=== PATIENT | male | born 1990 | race Caucasian/White ===

== ENCOUNTER 2016-05-29 14:08 | Emergency (ER) | payer OTHER ==
[~2016-05-29] VITALS: Ht 172.7 cm; Wt 90.0 kg
[~2016-05-29 14:08] MED LIST: CEPH500C3 PO; LORT7.5T3 PO; OXYC-360 PO
[2016-05-29 14:23] VITALS: BP 107/72; PULSE 98; RESP 16; TEMP 98.8; O2SAT 96
[2016-05-29] MEDS ORDERED: LEVA750T PO (15:51)
[2016-05-29] MEDS ORDERED: VORT1TAB3 PO (15:51)
[2016-05-29] MEDS ORDERED: SERO100T PO (15:51)
[2016-05-29] MEDS ORDERED: CYMB60CA PO (15:51)
[2016-05-29] MEDS ORDERED: RISP2TAB37 PO (15:51)
[2016-05-29] MEDS ORDERED: PANT40TA3 PO (15:51)
[2016-05-29] MEDS ORDERED: ACET-703 PO (15:51)
[2016-05-29] MEDS ORDERED: PERC5TAB12 PO (15:51)
[2016-05-29] MEDS ORDERED: RESP: LIDOCAINE HCL 4% PF 5 ML NEB NEB ONE (16:00)
[2016-05-29] MEDS ORDERED: predniSONE 20 MG TAB PO ONE (16:00)
[2016-05-29 16:13] VITALS: O2SAT 98
[2016-05-29] MEDS: RESP: ALBUTEROL 2.5 MG/IPRATROPIUM 0.5 MG NEB (SCH) INH ×2 (16:15→16:18)
[2016-05-29 16:19] VITALS: O2SAT 97
[2016-05-29] MEDS ORDERED: GUAI1LIQ16 PO (17:04)
[2016-05-29] MEDS ORDERED: PRED-503 PO (17:04)
--- NOTE | 2016-05-29 17:05 | PD ---
HPI Chief Complaint: Cold / Flu Symptoms Time Seen by Provider: 15:48 Travel History International Travel<30 days: No Contact w/Intl Traveler<30days: No Traveled to known affect area: No History of Present Illness HPI The patient is a 26-year-old male who presents emergency department for cough and cold symptoms. The patient is a 4 day history of cough producing yellow to brown sputum, facial congestion, body aches, and subjective fevers. The patient states he was seen at urgent care yesterday and had an influenza screen that was negative and a chest x-ray that was negative. The patient was diagnosed with bronchitis and discharged home on Levaquin and an albuterol inhaler. However, the patient continues have a productive cough and bilateral chest wall pain secondary to coughing. The patient denies any history of chronic bronchitis or chronic pneumonia. He denies any shortness of breath. He denies any associated nausea, vomiting, diarrhea, or abdominal pain. PFSH Past Medical History Bipolar Disorder: Yes Depression: Yes Diminished Hearing: No Musculoskeletal: Yes (CHOSTOCHONDRITIS(LT KNEE)) Respiratory: Yes (recent bronchitiis) Immunizations Current: Yes Influenza Vaccination: No ?: Not Past Surgical History Oral Surgery: Yes (WISDOM TEETH REMOVED) Social History Alcohol Use: No (denies) Tobacco Use: Yes Substance Use: Yes Allergies-Medications (Allergen,Severity, Reaction): Coded Allergies: No Known Allergies (Unverified , 05/29/16) Reported Meds & Prescriptions Reported Meds & Active Scripts Active Reported Risperdal (Risperidone) 2 Mg Tab 2 Mg PO DAILY Trintellix (Vortioxetine) 20 Mg Tab 20 Mg PO BID Cymbalta DR (Duloxetine HCl) 60 Mg Capdr 60 Mg PO DAILY Seroquel (Quetiapine Fumarate) 100 Mg Tab 100 Mg PO HS Pantoprazole (Pantoprazole Sodium) 40 Mg Tab 40 Mg PO DAILY Percocet (Oxycodone-Acetaminophen) 5-325 mg Tab 1 Tab PO Q4H PRN Tylenol Extra Strength (Acetaminophen) 500 Mg Tab 1,000 Mg PO Q4-6H PRN Levaquin (Levofloxacin) 750 Mg Tab 750 Mg PO DAILY Review of Systems Except as stated in HPI: all other systems reviewed are Neg General / Constitutional: Positive: Fever (subjective) HENT: Positive: Congestion Cardiovascular: No: Chest Pain or Discomfort Respiratory: Positive: Cough, Wheezing, No: Shortness of Breath Gastrointestinal: No: Nausea, Vomiting, Diarrhea, Abdominal Pain Musculoskeletal: Positive: Myalgias Skin: No Rash Physical Exam Narrative GENERAL: Awake, alert, pleasant 26-year-old male appears his stated age and is in no acute respiratory distress. SKIN: Warm and dry. HEAD: Atraumatic. Normocephalic. EYES: Pupils equal and round. No scleral icterus. No injection or drainage. ENT: No nasal bleeding or discharge. Mildly erythematous posterior oropharynx.. NECK: Trachea midline. No JVD. CARDIOVASCULAR: Regular rate and rhythm. No murmur appreciated. Heart rate in the 90s. RESPIRATORY: No accessory muscle use. Scattered rhonchi. GASTROINTESTINAL: Abdomen soft, non-tender, nondistended. No rebound tenderness.. MUSCULOSKELETAL: No obvious deformities. No clubbing. No cyanosis. No edema. NEUROLOGICAL: Awake and alert. No obvious cranial nerve deficits. Motor grossly within normal limits. Normal speech. PSYCHIATRIC: Appropriate mood and affect; insight and judgment normal. Data Data Last Documented VS Vital Signs Date Time Temp Pulse Resp B/P Pulse Ox O2 Delivery O2 Flow Rate FiO2 05/29/16 16:19 97 21 05/29/16 15:53 18 05/29/16 14:23 98.8 98 107/72 Orders Ecg Monitoring (05/29/16 16:00) Oximetry (05/29/16 16:00) Albuterol-Ipratropium Neb (Duoneb Neb) (05/29/16 16:00) Lidocaine Pf 4% Neb (Lidocaine Pf 4% Neb (05/29/16 16:00) Prednisone (Deltasone) (05/29/16 16:00) [facility] Medical Decision Making Medical Screen Exam Complete: Yes Emergency Medical Condition: Yes Medical Record Reviewed: Yes Differential Diagnosis Differential diagnosis includes bronchitis, pneumonia, influenza, viral syndrome , congestive heart failure, pleural effusion. Narrative Course The patient states he had a negative influenza screen yesterday and a negative chest x-ray. The patient was placed on Levaquin and albuterol inhaler. The patient does have coarse breath sounds consistent with bronchitis, is currently afebrile and is not hypoxic or tachycardic. Patient was administered to duo nebs with respiratory lidocaine. I will discharge patient home on prednisone, have advised him to continue the albuterol inhaler every 4 hours and finished antibiotics. He is also advised to follow-up with a primary physician. Work excuse for 2 days. Diagnosis Primary Impression: Bronchitis Patient Instructions: General Instructions Additional Instructions: Work excuse for 2 days. Albuterol inhaler as previously directed every 4 hours while awake. Finished Levaquin as previously directed. Prednisone as directed. Follow-up with a primary physician. Scripts Guaifenesin-Codeine (G Tussin AC 100-10 mg/5Ml)1 Liq Liq5 Ml PO Q6HR #1 BOTTLE Prov:Andrew Pierre MD 05/29/16 Prednisone (Deltasone)20 Mg Tab40 Mg PO DAILY 4 Days Ref 0 Prov:Andrew Pierre MD 05/29/16 Disposition: 01 DISCHARGE HOME Condition: Stable Andrew Pierre MD May 29, 2016 17:05
[2016-05-29 17:18] VITALS: BP 135/88
== END 2016-05-29 17:19 | disposition home or self-care (01) ==
LOC: PHED 14:08
DX: J40 Bronchitis, not specified as acute or chronic (principal)
CPT/HCPCS: 94640; 94664; 99283; J7512

== ENCOUNTER 2016-06-06 11:23 | Emergency (ER) | payer OTHER ==
[~2016-06-06] VITALS: Ht 172.7 cm; Wt 91.0 kg
[~2016-06-06 11:23] MED LIST changes: +ACET-703 PO; -CEPH500C3 PO; +CYMB60CA PO; +GUAI1LIQ16 PO; +LEVA750T PO; -LORT7.5T3 PO; -OXYC-360 PO; +PANT40TA3 PO; +PERC5TAB12 PO; +PRED-503 PO; +RISP2TAB37 PO; +SERO100T PO; +VORT1TAB3 PO
[2016-06-06 11:27] VITALS: BP 124/83; PULSE 119; RESP 16; TEMP 98.1; O2SAT 97
[2016-06-06] MEDS ORDERED: CLON1TAB PO (11:46)
[2016-06-06] MEDS ORDERED: TRIH2 PO (11:46)
[2016-06-06] MEDS ORDERED: BREX1TAB4 PO (11:46)
--- NOTE | 2016-06-06 12:08 | PD ---
HPI Chief Complaint: Injury Time Seen by Provider: 11:50 Travel History International Travel<30 days: No Contact w/Intl Traveler<30days: No Traveled to known affect area: No History of Present Illness HPI Patient 26-year-old male presenting with right foot pain. He states during the night he woke up to the restroom and when he stepped down he suffered an inversion injury of the right foot/ankle. He said pain in the dorsum of the foot since and has been able to bear weight but has had difficulty doing so. He denies pain in the ankle, knee or toes. He denies any weakness or paresthesia. No attempts at palliation. Has a history of osteochondritis dissecans and peptic ulcer disease. He denies any other complaints this time. PFSH Past Medical History Bipolar Disorder: Yes Depression: Yes Diminished Hearing: No Musculoskeletal: Yes (CHOSTOCHONDRITIS(LT KNEE)) Respiratory: Yes (recent bronchitiis) Immunizations Current: Yes Influenza Vaccination: No Past Surgical History Oral Surgery: Yes (WISDOM TEETH REMOVED) Social History Alcohol Use: No (denies) Tobacco Use: Yes Substance Use: No Allergies-Medications (Allergen,Severity, Reaction): Coded Allergies: Codeine (Verified Allergy, Severe, 06/06/16) Penicillin (Verified Allergy, Severe, 06/06/16) Tramadol (Verified Allergy, Severe, 06/06/16) Reported Meds & Prescriptions Reported Meds & Active Scripts Active G Tussin AC 100-10 mg/5Ml (Guaifenesin-Codeine) 1 Liq Liq 5 Ml PO Q6HR Reported Trihexyphenidyl (Trihexyphenidyl HCl) 2 Mg Tab 2 Mg PO BID Clonazepam 1 Mg Tab 1 Mg PO TID Rexulti (Brexpiprazole) 2 Mg Tab 2 Mg PO DAILY Risperdal (Risperidone) 2 Mg Tab 2 Mg PO DAILY Cymbalta DR (Duloxetine HCl) 60 Mg Capdr 60 Mg PO DAILY Seroquel (Quetiapine Fumarate) 100 Mg Tab 100 Mg PO HS Pantoprazole (Pantoprazole Sodium) 40 Mg Tab 40 Mg PO DAILY Tylenol Extra Strength (Acetaminophen) 500 Mg Tab 1,000 Mg PO Q4-6H PRN Levaquin (Levofloxacin) 750 Mg Tab 750 Mg PO DAILY Review of Systems General / Constitutional: No: Fever Cardiovascular: No: Chest Pain or Discomfort, Palpitations, Tachycardia Respiratory: No: Shortness of Breath Musculoskeletal: Positive: Other (see the history of present illness) Neurologic: No: Weakness, Focal Abnormalities, Paresthesia, Sensory Disturbance Physical Exam Narrative GENERAL: Well-developed and well-nourished adult male in no acute distress. SKIN: Warm and dry. Good turgor without tenting. HEAD: Normocephalic and atraumatic. EYES: PERRL bilaterally, 5mm. EOMI bilaterally. No injection or icterus present. No proptosis. Lids without edema or erythema. CARDIOVASCULAR: Regular rate(96) and rhythm without murmurs, rubs, clicks or gallops. Radial, dorsalis pedal and posterior tibial pulses 2+ bilaterally. No pedal edema. RESPIRATORY: Clear to auscultation bilaterally with symmetrical rise and fall, no distress or use of accessory muscles. MUSCULOSKELETAL: Denies palpation of the right navicular bone without crepitus or step-offs. Cervical tenderness along the fifth metatarsal. Right foot and ankle has no edema or discoloration. Normal range of motion in right ankle, right knee and all toes right foot. The pain palpation of the right knee, tib- fib, ankle and toes. Patient freely moving all four extremities spontaneously. Extremities without clubbing, cyanosis, or edema. No obvious deformities. NEUROLOGIC: CN II-XII grossly intact. Awake and alert. Strength 5/5 bilateral knee flexion, knee extension, plantar and dorsiflexion. Sensation intact to all toes of right foot. Normal speech. PSYCHIATRIC: Appropriate mood and affect; insight and judgment normal. Data Data Last Documented VS Vital Signs Date Time Temp Pulse Resp B/P Pulse Ox O2 Delivery O2 Flow Rate FiO2 06/06/16 11:27 98.1 119 16 124/83 97 Orders Foot, Complete ([id number]) (06/06/16 11:46) Ice/Cold Pack (06/06/16 11:46) Splint Or Brace Apply/Monitor (06/06/16 12:41) Crutches (06/06/16 12:41) MDM Medical Decision Making Medical Screen Exam Complete: Yes Emergency Medical Condition: Yes Differential Diagnosis Foot sprain versus navicular fracture versus contusion Narrative Course Patient is a 26-year-old male with a history of osteochondritis dissecans presenting with right foot pain and tenderness around the navicular bone after an inversion injury last evening. There is no edema or discoloration. He has normal range of motion and is neurovascularly intact. He states he has been able to bear weight only minimally. She was given I ordered x-ray of the foot which showed no fractures or subluxations. As there are minimal findings suggestive of a sprain no oh. She says are recommended at this time. Patient will cannot take NSAIDs. Recommend OTC Tylenol and will provide Terrell wrap and crutches.See discharge paperwork for further instructions. The plan was discussed with the patient who acknowledged their understanding and agreement. Reinforced the follow-up with primary care is critically important. Patient instructed on emergent conditions that should prompt return to ED. Diagnosis Primary Impression: Foot sprain Qualified Code: S93.601A - Foot sprain, right, initial encounter Patient Instructions: Foot Sprain (ED), General Instructions Departure Forms: Tests/Procedures, Work Release Enter return to work date: Jun 09, 2016 Additional Instructions: Take OTC Tylenol as needed for pain Apply ice every 1 to 2 hours as needed for pain Avoid maneuvers that aggravate pain Keep TERRELL bandage on while being active or using extremity Use crutches when walking to avoid pressure on joint Elevate when at rest Be aware that may take several weeks for sprains to heal fully Follow-up with PCP in 2-3 days Return to the ED for any acute worsening of symptoms Disposition: 01 DISCHARGE HOME Condition: Stable Iggy Villarreal III Jun 06, 2016 12:08
--- NOTE | 2016-06-06 12:38 | RADHPO ---
EXAM DATE/TIME: 06/06/2016 12:21 [place] COMPARISON: No previous studies available for comparison. INDICATIONS : Twisted right foot last night, pain dorsal surface right foot. MEDICAL HISTORY : None. SURGICAL HISTORY : None. ENCOUNTER: Initial ACUITY: 2 days PAIN SCORE: 5/10 LOCATION: Right dorsal foot FINDINGS: Three view examination of the right foot demonstrates no soft tissue swelling, dislocation, or fractu re. The tarsal bones appear intact. The interphalangeal and metatarsophalangeal joints are intact. The calcaneus is intact. Bony mineralization is normal. CONCLUSION: Unremarkable examination of the right foot. Monica Fernández MD on June 06, 2016 at 12:37 Board Certified Radiologist. This report was verified electronically.
== END 2016-06-06 13:05 | disposition home or self-care (01) ==
LOC: PHEFT 11:23
DX: S93.601A Unspecified sprain of right foot, initial encounter (principal); Z72.0 Tobacco use; X50.1XXA Overexertion from prolonged static or awkward postures, initial encounter; Y92.003 Bedroom of unspecified non-institutional (private) residence as the place of occurrence of the external cause; Y99.8 Other external cause status
CPT/HCPCS: 73630; 99283; E0113

== ENCOUNTER 2016-11-15 16:41 | Emergency (ER) | payer OTHER ==
[~2016-11-15] VITALS: Ht 172.7 cm; Wt 87.0 kg
[~2016-11-15 16:41] MED LIST changes: +BREX1TAB4 PO; +CLON1TAB PO; -PERC5TAB12 PO; -PRED-503 PO; +TRIH2 PO; -VORT1TAB3 PO
[2016-11-15 16:50] VITALS: BP 145/97; PULSE 124; RESP 16; TEMP 98.2; O2SAT 99
[2016-11-15 17:47] VITALS: BP 147/85; PULSE 111; RESP 16; O2SAT 96
[2016-11-15] MEDS ORDERED: LIDOCAINE VISCOUS 2% SOLN 15 ML UDC OTHER STA (18:01)
[2016-11-15] MEDS ORDERED: EXCETAB42 PO (18:04)
[2016-11-15] MEDS ORDERED: DICY10 PO (18:04)
[2016-11-15] MEDS ORDERED: LIDOCAINE HCL 1% 50 ML VIAL INFIL ONE (18:15)
[2016-11-15] MEDS ORDERED: BUPIVACAINE HCL PF 0.5% 10 ML VIAL INFIL ONE (18:15)
[2016-11-15] MEDS ORDERED: KETOROLAC TROMETHAMINE 30 MG/ML (IVP) VIAL IV PUSH ONE (18:15)
[2016-11-15 18:27] LABS: AUTOMATED NEUTROPHIL # 9.9 TH/MM3 (1.8-7.7); BASOPHIL % 0.3 % (0.0-2.0); EOSINOPHIL # 0.3 TH/MM3 (0-0.4); EOSINOPHIL % 1.9 % (0.0-4.0); HEMATOCRIT 44.3 % (39.0-51.0); LYMPH % 14.4 % (9.0-44.0); LYMPHOCYTE # 1.9 TH/MM3 (1.0-4.8); MEAN CELL VOLUME 88.9 FL (80.0-100.0); MEAN CORPUSCULAR HEMOGLOBIN 29.8 PG (27.0-34.0); MEAN CORPUSCULAR HGB CONC 33.6 % (32.0-36.0); NEUT % 75.4 % (16.0-70.0); PLATELET COUNT 379 TH/MM3 (150-450); RED BLOOD COUNT 4.98 MIL/MM3 (4.50-5.90); RED CELL DISTRIBUTION WIDTH 12.7 % (11.6-17.2); WHITE BLOOD COUNT 13.2 TH/MM3 (4.0-11.0)
[2016-11-15 18:31] LABS: HEMO FLAGS AUTO DIFF
[2016-11-15 18:34] LABS: CHLORIDE 103 MEQ/L (98-107); POTASSIUM 3.5 MEQ/L (3.5-5.1); SODIUM (NA) 141 MEQ/L (136-145)
[2016-11-15 18:38] LABS: ANION GAP 9 MEQ/L (5-15); BICARBONATE 29.4 MEQ/L (21.0-32.0); BLOOD UREA NITROGEN 8 MG/DL (7-18)
--- NOTE | 2016-11-15 18:38 | PD ---
HPI Chief Complaint: Skin Problem Time Seen by Provider: 17:44 Travel History International Travel<30 days: No Contact w/Intl Traveler<30days: No Traveled to known affect area: No History of Present Illness HPI This Is a 26-year-old man, history of psychiatric disease, GI problems, presents to the emergency department with pain and swelling his left upper lip. He states about 5-6 days ago he's noticed a small pustule. He tried to squeeze it. Last couple days ago more painful red and swollen. He went to an urgent care where they treated him with topical acyclovir, and by mouth acyclovir, and by mouth Bactrim. He has a history of MRSA infection on his face in the past. He states symptoms were not improving at all. He had worsening pain redness and swelling. He went to the urgent care again today and they sent him to the emergency Department. No fevers or chills. No nausea or vomiting. He does state he has pain in the entire face, and behind the eye on that same side. History Past Medical History Narrative Medical PUD/gastroparesis/hiatal hernia/GERD Bipolar disorder/OCD/anxiety Tardive dyskinesia Tetanus Vaccination: > 5 Years Influenza Vaccination: No Social History Alcohol Use: No (hx of) Tobacco Use: Yes (1/3 ppd) Allergies-Medications (Allergen,Severity, Reaction): Coded Allergies: Codeine (Verified Allergy, Severe, 11/15/16) Penicillin (Verified Allergy, Severe, 11/15/16) Tramadol (Verified Allergy, Severe, 11/15/16) Benadryl (Verified Adverse Reaction, Severe, Shaking, vomiting, 11/15/16) Reported Meds & Prescriptions Reported Meds & Active Scripts Active Reported Excedrin Tension Headache Cplt (Acetaminophen/Caffeine) 1 Each Tablet 1 PO Bentyl (Dicyclomine HCl) 10 Mg Cap 10 Mg PO QID Trihexyphenidyl (Trihexyphenidyl HCl) 2 Mg Tab 2 Mg PO BID Seroquel (Quetiapine Fumarate) 100 Mg Tab 100 Mg PO HS Review of Systems Except as stated in HPI: all other systems reviewed are Neg Physical Exam Narrative GENERAL: 26 room and, generally well-appearing, no acute distress. SKIN: Focused skin assessment warm/dry. HEAD: Atraumatic. Normocephalic. EYES: Pupils equal and round. No scleral icterus. No injection or drainage. ENT: No nasal bleeding or discharge. Patient has tenderness and induration with erythema in the left upper lip. There is a small focal point of infection with a pustule. There is not much surrounding erythema. With compression a small amount of purulent drainage can be expressed. NECK: Trachea midline. No JVD. CARDIOVASCULAR: Regular rate and rhythm. No murmur appreciated. RESPIRATORY: No accessory muscle use. Clear to auscultation. Breath sounds equal bilaterally. GASTROINTESTINAL: Abdomen soft, non-tender, nondistended. Hepatic and splenic margins not palpable. MUSCULOSKELETAL: No obvious deformities. No edema. NEUROLOGICAL: Awake and alert. No obvious cranial nerve deficits. Motor grossly within normal limits. Normal speech. PSYCHIATRIC: Appropriate mood and affect; insight and judgment normal. Data Data Last Documented VS Vital Signs Date Time Temp Pulse Resp B/P Pulse Ox O2 Delivery O2 Flow Rate FiO2 11/15/16 19:16 89 17 133/84 98 Room Air 11/15/16 16:50 98.2 Orders Complete Blood Count With Diff (11/15/16 18:01) Comprehensive Metabolic Panel (11/15/16 18:01) Iv Access Insert/Monitor (11/15/16 18:01) Wound Culture And Gram Stain (11/15/16 18:01) Lidocaine 1% Inj (50 Ml) (Xylocaine 1% I (11/15/16 18:15) Bupivacaine Pf 0.5% Inj (Marcaine Pf 0.5 (11/15/16 18:15) Ketorolac Inj (Toradol Inj) (11/15/16 18:15) Lidocaine 2% Viscous (Xylocaine 2% Visco (11/15/16 18:01) Morphine Inj (Morphine Inj) (11/15/16 18:45) Clindamycin Inj (Cleocin Inj) (11/15/16 19:30) Labs Laboratory Tests Test 11/15/16 18:16 White Blood Count 13.2 TH/MM3 Red Blood Count 4.98 MIL/MM3 Hemoglobin 14.9 GM/DL Hematocrit 44.3 % Mean Corpuscular Volume 88.9 FL Mean Corpuscular Hemoglobin 29.8 PG Mean Corpuscular Hemoglobin 33.6 % Concent Red Cell Distribution Width 12.7 % Platelet Count 379 TH/MM3 Mean Platelet Volume 7.6 FL Neutrophils (%) (Auto) 75.4 % Lymphocytes (%) (Auto) 14.4 % Monocytes (%) (Auto) 8.0 % Eosinophils (%) (Auto) 1.9 % Basophils (%) (Auto) 0.3 % Neutrophils # (Auto) 9.9 TH/MM3 Lymphocytes # (Auto) 1.9 TH/MM3 Monocytes # (Auto) 1.1 TH/MM3 Eosinophils # (Auto) 0.3 TH/MM3 Basophils # (Auto) 0.0 TH/MM3 CBC Comment AUTO DIFF Differential Comment AUTO DIFF CONFIRMED Platelet Estimate NORMAL Platelet Morphology Comment CLUMPED Red Cell Morphology Comment NORMAL Sodium Level 141 MEQ/L Potassium Level 3.5 MEQ/L Chloride Level 103 MEQ/L Carbon Dioxide Level 29.4 MEQ/L Anion Gap 9 MEQ/L Blood Urea Nitrogen 8 MG/DL Creatinine 0.86 MG/DL Estimat Glomerular Filtration 107 ML/MIN Rate Random Glucose 73 MG/DL Calcium Level 9.6 MG/DL Total Bilirubin 0.4 MG/DL Aspartate Amino Transf 14 U/L (AST/SGOT) Alanine Aminotransferase 25 U/L (ALT/SGPT) Alkaline Phosphatase 114 U/L Total Protein 8.8 GM/DL Albumin 4.3 GM/DL [facility] Medical Decision Making Medical Screen Exam Complete: Yes Emergency Medical Condition: Yes Differential Diagnosis Infection, abscess, facial cellulitis, dural vein thrombosis, meningitis, orbital cellulitis Narrative Course Medical decision making This is a 26 human presents to the emergency department complaining of tenderness and pain in his left upper lip. It appears to be infection with abscess. There is a small amount of drainage but it doesn't appear to be adequately drained. He's been on Bactrim for a couple days already. At this point we'll do an infraorbital nerve block, we'll needle drain the abscess, IV antibiotics. I called about admitting him for 23 hour observation. I spoke with Dr. Dupree. There is no plastic surgeon or oral facial surgeon on-call. I don't think he needs surgery at this point. However given the lack of any on- body recall instructor, Dr. Dupree was unwilling to accept the patient because of the patient were to worsen or do not specialty backup. At this point, I believe we can fix the problem by draining the abscess. He is on Bactrim already. He does not look toxic or septic. I do not think he has any intracranial infection or abscess or clot. I think we can try continue warm compresses, continue Bactrim, wide clindamycin, and will bring him back in 48 hours for wound check. Procedures Procedure Narrative Infraorbital nerve block: Inside the upper lip was anesthetized with viscous lidocaine. Combination of 1 % lidocaine and half percent Marcaine was injected directed toward the infraorbital foramen. Total of 4 mL's was injected. Patient tolerated well. Diagnosis Primary Impression: Lip abscess Additional Instructions: Take Naprosyn as needed for pain. Take clindamycin as prescribed. Continue Bactrim as previously prescribed. Apply warm compresses to wound 4-5 times daily. Return to the emergency department for any worsening pain, swelling, redness, fevers, headache, changes in vision, or any other new or worsening symptoms. Return to the emergency department in 48 hours for wound check. Med/Other Pt SpecificInfo: Prescription(s) given Scripts Naproxen (Naprosyn)500 Mg [id number] Mg PO BID PRN (PAIN SCALE 1 TO 10) #20 TAB Prov:Remi Pimentel MD 11/15/16 Clindamycin 300 Mg [id number] Mg PO Q6H 10 Days Prov:Remi Pimentel MD 11/15/16 Disposition: 01 DISCHARGE HOME Condition: Stable Remi Pimentel MD Nov 15, 2016 18:37
[2016-11-15 18:41] LABS: ALT (GPT) 25 U/L (12-78); AST (GOT) 14 U/L (15-37); GLOMERULAR FILTRATION RATE 107 ML/MIN (>89)
[2016-11-15 18:42] LABS: TOTAL BILIRUBIN ADULT 0.4 MG/DL (0.2-1.0)
[2016-11-15 18:44] LABS: ALKALINE PHOSPHATASE 114 U/L (45-117)
[2016-11-15] MEDS ORDERED: MORPHINE SULFATE 4 MG/ML INJ IV PUSH ONE (18:45)
[2016-11-15 19:15] LABS: PLATELET ESTIMATE SMEAR NORMAL (NORMAL); PLATELET MORPHOLOGY CLUMPED (NORMAL)
[2016-11-15 19:16] VITALS: BP 133/84; PULSE 89; RESP 17; O2SAT 98
[2016-11-15 19:16] LABS: SCAN/DIFF AUTO DIFF CONFIRMED
[2016-11-15] MEDS ORDERED: CLINDAMYCIN INJ 600 MG in SODIUM CHLORIDE 0.9% INJ 100 ML IV ONE (19:30)
[2016-11-15] MEDS ORDERED: NAPR500 PO (19:57)
[2016-11-15] MEDS ORDERED: CLIN1CAP6 PO (19:57)
--- NOTE | 2016-11-15 20:09 | PD ---
Data Data Last Documented VS Vital Signs Date Time Temp Pulse Resp B/P Pulse Ox O2 Delivery O2 Flow Rate FiO2 11/15/16 19:16 89 17 133/84 98 Room Air 11/15/16 16:50 98.2 Orders Complete Blood Count With Diff (11/15/16 18:01) Comprehensive Metabolic Panel (11/15/16 18:01) Iv Access Insert/Monitor (11/15/16 18:01) Wound Culture And Gram Stain (11/15/16 18:01) Lidocaine 1% Inj (50 Ml) (Xylocaine 1% I (11/15/16 18:15) Bupivacaine Pf 0.5% Inj (Marcaine Pf 0.5 (11/15/16 18:15) Ketorolac Inj (Toradol Inj) (11/15/16 18:15) Lidocaine 2% Viscous (Xylocaine 2% Visco (11/15/16 18:01) Morphine Inj (Morphine Inj) (11/15/16 18:45) Clindamycin Inj (Cleocin Inj) (11/15/16 19:30) Labs Laboratory Tests Test 11/15/16 18:16 White Blood Count 13.2 TH/MM3 Red Blood Count 4.98 MIL/MM3 Hemoglobin 14.9 GM/DL Hematocrit 44.3 % Mean Corpuscular Volume 88.9 FL Mean Corpuscular Hemoglobin 29.8 PG Mean Corpuscular Hemoglobin 33.6 % Concent Red Cell Distribution Width 12.7 % Platelet Count 379 TH/MM3 Mean Platelet Volume 7.6 FL Neutrophils (%) (Auto) 75.4 % Lymphocytes (%) (Auto) 14.4 % Monocytes (%) (Auto) 8.0 % Eosinophils (%) (Auto) 1.9 % Basophils (%) (Auto) 0.3 % Neutrophils # (Auto) 9.9 TH/MM3 Lymphocytes # (Auto) 1.9 TH/MM3 Monocytes # (Auto) 1.1 TH/MM3 Eosinophils # (Auto) 0.3 TH/MM3 Basophils # (Auto) 0.0 TH/MM3 CBC Comment AUTO DIFF Differential Comment AUTO DIFF CONFIRMED Platelet Estimate NORMAL Platelet Morphology Comment CLUMPED Red Cell Morphology Comment NORMAL Sodium Level 141 MEQ/L Potassium Level 3.5 MEQ/L Chloride Level 103 MEQ/L Carbon Dioxide Level 29.4 MEQ/L Anion Gap 9 MEQ/L Blood Urea Nitrogen 8 MG/DL Creatinine 0.86 MG/DL Estimat Glomerular Filtration 107 ML/MIN Rate Random Glucose 73 MG/DL Calcium Level 9.6 MG/DL Total Bilirubin 0.4 MG/DL Aspartate Amino Transf 14 U/L (AST/SGOT) Alanine Aminotransferase 25 U/L (ALT/SGPT) Alkaline Phosphatase 114 U/L Total Protein 8.8 GM/DL Albumin 4.3 GM/DL MDM Supervised Visit with MARGOT: No Narrative Course Patient with history of hiatal hernia, GERD, nonspecific take NSAIDs. Recommend acetaminophen for pain. Diagnosis Primary Impression: Lip abscess Additional Instruction: Take acetaminophen as needed for pain. Take clindamycin as prescribed. Continue Bactrim as previously prescribed. Apply warm compresses to wound 4-5 times daily. Return to the emergency department for any worsening pain, swelling, redness, fevers, headache, changes in vision, or any other new or worsening symptoms. Return to the emergency department in 48 hours for wound check. Scripts Clindamycin 300 Mg [id number] Mg PO Q6H 10 Days Prov:Remi Pimentel MD 11/15/16 Disposition: 01 DISCHARGE HOME Condition: Stable Remi Pimentel MD Nov 15, 2016 20:09
[2016-11-15 20:15] VITALS: BP 135/67; PULSE 92; RESP 17; O2SAT 98
[2016-11-15] MEDS ORDERED: ACETAMINOPHEN/HYDROcodone 325 MG/5 MG TAB PO ONE (20:45)
[2016-11-15 21:28] VITALS: BP 138/69
[2016-11-15 21:45] VITALS: RESP 16
== END 2016-11-15 21:27 | disposition home or self-care (01) ==
LOC: PHED 16:41
DX: K13.0 Diseases of lips (principal); Z86.14 Personal history of Methicillin resistant Staphylococcus aureus infection; F17.210 Nicotine dependence, cigarettes, uncomplicated
CPT/HCPCS: 10060; 80053; 85025; 86403; 87070; 87186; 96365; 96375; 99282; J1885; J2270; 87205